=== PATIENT | male | born 1970 | race Caucasian/White ===

== ENCOUNTER → 2018-08-07 | Outpatient (CLI) | payer OTHER ==
--- NOTE | 2018-08-07 14:08 | CT ---
EXAM DESCRIPTION: Abdomen/Pelvis w/o Contrast: Computed Tomography. CLINICAL HISTORY: 47 years Male ABDOMINAL PAIN. Diverticulosis. COMPARISON: None. TECHNIQUE: Spiral-axial scans 2.5 x 2.5 mm intervals through the abdomen and pelvis without oral or IV contrast. Coronal and sagittal 2.0 mm reconstructions. Total Exam DLP: 943.18 mGy-cm. This exam was performed according to our departmental CT dose-optimization program which includes automated exposure control, adjustment of the mA and/or kV according to patient size and/or use of iterative reconstruction technique; to reduce radiation dose to as low as reasonably achievable (ALARA). FINDINGS: Colon: Relatively smooth walled with decreased haustral markings especially in the descending colon. Minimal edema in the raza proximal and transverse colon. Multiple diverticula beginning in the mid descending colon extending into the proximal sigmoid colon. Gas seen in some of the diverticula. No abnormal thickening or enlargement. No focal fatty stranding fascial thickening or fluid collection. There is a minimal indistinctness of the margins of the colon at several segments. No obstruction. Small Bowel: Minimal gas. No distention by fluid. No air-fluid levels. Terminal Ileum/Cecum: Minimal edema in the raza as seen in the colon. Appendix normal caliber. No fatty stranding or fascial thickening. Pelvic Organs: Prostate gland is abutting the base of the urinary bladder with a central calcification in the inferior aspect. No radiodense stones in the urinary bladder or wall thickening. No free fluid. Lung bases and pleura: Negative. Liver, stomach, spleen, and adrenal glands: long axis right lobe 19.9 cm. No focal lesions. Small hiatal hernia. Adrenal glands and spleen are negative. No ascites. Pancreas, Gallbladder, and Ducts: Gallbladder visualized. Duct not dilated. Normal density of pancreas and density of the surrounding fat. Kidneys and Ureters: No radiodense stones or hydronephrosis. Minimal perinephric stranding bilaterally physiologic. Mesentery: Fatty changes around the colon as noted and in the pararenal spaces. No free fluid, fluid collections, or free air. Aorta: Minimal atherosclerotic calcification with normal caliber of the outer raza. Spine and Bony Pelvis: Minimal spondylosis at L3-4 anteriorly. Pelvis and hip joints negative. Abdominal Wall/Back Soft Tissues: Minimal diastases at the umbilicus but no bowel. IMPRESSION: 1. Nonspecific colitis involving almost every segment with diverticulosis distally. No diverticulitis. No pericolonic inflammatory process, abscess, or free fluid. 2. Nonspecific hepatomegaly with no ascites. No common bile duct dilation. Gallbladder normal size. Pancreas is negative. Electronically signed by: David Armijo MD 08/07/2018 2:06 PM CDT
== END ==
LOC: LAB.O 08:56
PROVIDERS: ATTEND General Practice
DX: K57.30 Diverticulosis of large intestine without perforation or abscess without bleeding (principal); R11.0 Nausea

== ENCOUNTER 2018-10-22 13:09 | Emergency (ER) | payer SELFPAY ==
[2018-10-22] MEDS ORDERED: ASPIRIN TABLET 325 MG TAB PO ONE (13:20)
[2018-10-22] MEDS ORDERED: ALUM & MAG HYDROX-SIMETHICONE 30 ML, LIDOCAINE VISCOUS 2% 15 ML PO ONE ×2 (13:20)
[2018-10-22] MEDS ORDERED: LIDOCAINE HCL 2% (MOUTH-THROAT) 15 ML UD ONE (13:58)
[2018-10-22] MEDS ORDERED: ALUM & MAG HYDROX-SIMETHICONE 30 ML UD ONE (13:58)
--- NOTE | 2018-10-22 14:04 | RAD ---
EXAM DESCRIPTION: Abdomen Series CLINICAL HISTORY: nv, sob, chest discomfort COMPARISON: None. FINDINGS: AP supine and upright views of the abdomen show a nonspecific, nonobstructive bowel gas pattern with no evidence for free intraperitoneal air. No air-filled dilated loops of small bowel are seen. No significant air-fluid levels are identified. No obvious organomegaly is seen. No abnormal calcifications are seen in the expected location of the renal collecting systems. Single view of the chest shows cardiac silhouette and pulmonary vasculature to be within normal limits. Lungs are normally aerated and clear IMPRESSION: Nonspecific abdominal series Electronically signed by: Rafat Baker MD 10/22/2018 2:03 PM CDT
[2018-10-22] MEDS ORDERED: SODIUM CHLORIDE 0.9% 1000ML 1,000 ML IVS ONE (14:32)
[2018-10-22] MEDS ORDERED: MAGNESIUM SULFATE PREMIX 2GM 2 GM in PREMIX BAG 1 BAG IVPB ONE (14:33)
--- NOTE | 2018-10-22 14:33 | ED.PDOC ---
History of Present Illness - General Chief Complaint: Chest Pain/CO Time Seen by Provider: 10/22/18 13:19 Source: patient Exam Limitations: no limitations - History of Present Illness Initial Comments: the patient is a 47-year-old male presenting to emergency room secondary tochest pain and shortness of breath. Symptoms started last night in the middle the night when the patient had 3 episodes of chest pain with shortness of breath while he was actually lying in bed. Episodes were brief and lasted less than a few minutes. This morning however when he went to go to work. Any physical activity at all with cause him significant shortness of breath in the morning he exerted himself the more he had chest pain. He developed severe diaphoresis and almost passed out twice at work. No definite palpitations. Chest pain is central and pressure-like. No history of any coronary artery disease he does have hypertension and apparently takes losartan and propranolol. The patient does have mild chronic daily diarrhea since of colitis that he developed back in July. He is still having mild intermittent diarrhea. No abdominal pain. No vomiting today but he did have a little bit of nausea. The patient was diaphoretic and obviously pale and short of breath upon arrival here. Vital signs were however within normal limits. He was oxygenating well. chest pain resolved after a few minutes of resting and relaxing. shortness of breath persisted a bit longer. Supplemental oxygen was put in place for symptomatic relief only. Timing/Duration: unsure Severity: moderate Improving Factors: nothing Worsening Factors: nothing Associated Symptoms: diaphoresis, loss of appetite, shortness of breath, weakness Allergies/Adverse Reactions: Allergies NO KNOWN ALLERGY Allergy (Verified 10/22/18 14:57) Home Medications: Ambulatory Orders Losartan Potassium 100 mg PO DAILY 10/22/18 Propranolol HCl 40 mg PO BID 10/22/18 Review of Systems - Review of Systems Constitutional: States: malaise, weakness EENTM: States: no symptoms reported Respiratory: States: short of breath Cardiology: States: chest pain Gastrointestinal/Abdominal: States: nausea Genitourinary: States: no symptoms reported Musculoskeletal: States: no symptoms reported Skin: States: no symptoms reported Neurological: States: no symptoms reported Endocrine: States: no symptoms reported All other Systems: No Change from Baseline Physical Exam - Physical Exam General Appearance: Alert, Obvious distress, Ill Appearing, Other - the patient is pale and diaphoretic. Eye Exam: bilateral normal Ears, Nose, Throat: hearing grossly normal, normal ENT inspection Neck: full range of motion, supple Respiratory: chest non-tender, lungs clear, normal breath sounds, no respiratory distress, no accessory muscle use Cardiovascular/Chest: normal peripheral pulses, regular rate, rhythm, no edema Peripheral Pulses: radial,right: 2+, radial,left: 2+ Gastrointestinal/Abdominal: non tender - no rebound or peritoneal signs. No pain to palpation. 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 The patient is going to be transferred to [facility] for cardiac evaluation. The patient has received a dose of aspirin and Lovenox for this. He was also initially put on oxygen primarily for symptomatic relief. He is currently chest pain-free and is not short of breath now that he is at rest. Initially the patient had a low magnesium level and was given 2 g of IV magnesium sulfate. He does have mildly elevated liver function tests but does take some daily alcohol intake. The patient also has some chronic renal insufficiency. His creatinine was 2.7 today and was 2.3 back in July. I am uncertain of the source of this. So is he. The patient does apparently have something of a chronic colitis as he reports that he has had some diarrhea essentially on a daily basis since July. he has had a colonoscopy for this. He does have known diverticulosis. No evidence of abdominal pain at this time. This is most likely the source of the low magnesium. He did receive a small fluid bolus. Transferred for higher level of care. No Plavix has been given at this point. - Results/Orders Results/Orders: telemetry monitoring shows normal sinus rhythm. Initial and repeat EKG shows poor progression in anterior leads. Mild T-wave in version in lead [address] segment or T-wave changes otherwise indicative of acute ischemia. Heart rate is approximately 90 bpm. QT interval. Normal axis. Initial chest x-ray fails to show any acute pathology. abdominal x-rays appear to be within normal limits. Laboratory Results - last 24 hr 10/22/18 10/22/18 10/22/18 13:25 13:25 13:25 WBC 7.0 RBC 4.48 L Hgb 15.9 Hct 46.6 MCV 103.9 H MCH 35.4 H MCHC 34.1 RDW 16.3 H Plt Count 196 MPV 7.9 Absolute Neuts (auto) 4.90 Absolute Lymphs (auto) 1.30 Absolute Monos (auto) 0.40 Absolute Eos (auto) 0.20 Absolute Basos (auto) 0.00 Neutrophils % 70.5 Lymphocytes % 19.1 L Monocytes % 6.3 Eosinophils % 3.5 Basophils % 0.6 PT INR PTT (SP) D-Dimer, Quantitative Sodium 131 L Potassium 4.9 Chloride 97 L Carbon Dioxide 21 Anion Gap 17.9 BUN 17 Creatinine 2.77 H BUN/Creatinine Ratio 6.1 L Random Glucose 99 Serum Osmolality 264.2 L Lactic Acid Calcium 9.1 Magnesium 1.3 L Total Bilirubin 1.8 H AST 87 H ALT 64 H Alkaline Phosphatase 67 Creatine Kinase 271 H* CK-MB (CK-2) 6.1 H* CK-MB (CK-2) % 2.25 Troponin I < 0.02 B-Natriuretic Peptide 8.8 Serum Total Protein 7.4 Albumin 3.7 Globulin 3.7 H Albumin/Globulin Ratio 1.0 L Amylase 57 Lipase 58 H Urine Color Urine Appearance Urine pH Ur Specific [place] Urine Protein Urine Glucose (UA) Urine Ketones Urine Blood Urine Nitrite Urine Bilirubin Urine Urobilinogen Ur Leukocyte Esterase Urine RBC Urine WBC Ur Epithelial Cells Urine Bacteria Hyaline Casts 10/22/18 10/22/18 10/22/18 13:25 13:25 14:17 WBC RBC Hgb Hct MCV MCH MCHC RDW Plt Count MPV Absolute Neuts (auto) Absolute Lymphs (auto) Absolute Monos (auto) Absolute Eos (auto) Absolute Basos (auto) Neutrophils % Lymphocytes % Monocytes % Eosinophils % Basophils % PT 10.3 INR 1.03 PTT (SP) 26.8 D-Dimer, Quantitative 0.29 Sodium Potassium Chloride Carbon Dioxide Anion Gap BUN Creatinine BUN/Creatinine Ratio Random Glucose Serum Osmolality Lactic Acid 1.5 Calcium Magnesium Total Bilirubin AST ALT Alkaline Phosphatase Creatine Kinase CK-MB (CK-2) CK-MB (CK-2) % Troponin I B-Natriuretic Peptide Serum Total Protein Albumin Globulin Albumin/Globulin Ratio Amylase Lipase Urine Color Kiki Urine Appearance Clear Urine pH 5.5 Ur Specific [place] 1.020 Urine Protein 100 H Urine Glucose (UA) Negative Urine Ketones Trace Urine Blood Trace-lysed H Urine Nitrite Positive H Urine Bilirubin Moderate Urine Urobilinogen 0.2 Ur Leukocyte Esterase Negative Urine RBC 1-3 Urine WBC 3-5 H Ur Epithelial Cells 0-1 Urine Bacteria 0 Hyaline Casts 3-5 Departure - Departure Clinical Impression: Chronic diarrhea, Hypomagnesemia Chest pain Qualifiers: Chest pain type: unspecified Qualified Code(s): R07.9 - Chest pain, unspecified Disposition: Transfer to Hospital Departure Forms: ED Discharge - Pt. Copy, Patient Portal Self Enrollment Instructions: DI for Chest Pain Referrals: Aditya Tolliver MD [Primary Care Provider] - 1-2 Weeks Home Medications: Ambulatory Orders Losartan Potassium 100 mg PO DAILY 10/22/18 Propranolol HCl 40 mg PO BID 10/22/18 Transfer to Outside Facility - Transfer Information Accepting Provider:: dr metz Accepting Facility: [facility] Reason for Transfer: required specialist not available
[2018-10-22] MEDS ORDERED: MAGNESIUM SULFATE PREMIX 2GM 50 ML IVPB ONE (14:53)
[2018-10-22] MEDS ORDERED: SUCRALFATE 1 GM/10 ML 1 GM UD PO ONE (15:01)
[2018-10-22] MEDS ORDERED: ENOXAPARIN SODIUM 80 MG/0.8 ML SYG SUBCU ONE (15:27)
[2018-10-22 17:40] VITALS: TEMP 97.8
[2018-10-22 17:45] VITALS: BP 132/98; O2SAT 98
== END 2018-10-22 17:18 | disposition short-term general hospital (02) ==
LOC: ER 13:09
DX: R07.9 Chest pain, unspecified (principal); R19.7 Diarrhea, unspecified; E83.42 Hypomagnesemia; R06.02 Shortness of breath; R94.5 Abnormal results of liver function studies; N28.9 Disorder of kidney and ureter, unspecified; K57.30 Diverticulosis of large intestine without perforation or abscess without bleeding; R11.0 Nausea; I10 Essential (primary) hypertension; Z79.899 Other long term (current) drug therapy
CPT/HCPCS: 36415; 74019; 80053; 81001; 82150; 82550; 82553; 83605; 83690; 83735; 83880; 84484; 85025; 85379; 85610; 85730; 87086; 93005; J1650; J3475; J7030

== ENCOUNTER → 2019-01-12 | Outpatient (CLI) | payer SELFPAY ==
--- NOTE | 2019-01-12 20:22 | US ---
EXAM DESCRIPTION: Venous,Lower Extremity LT (accession [id number]), Venous,Lower Extremity RT (accession [id number]): Ultrasound. CLINICAL HISTORY: EDEMA, PN. Bilateral lower extremities. COMPARISON: None Available. TECHNIQUE: Two -dimensional and doppler sonographic evaluation of the deep venous system of the bilateral lower extremities. FINDINGS: Doppler evaluation shows normal color flow and normal phasicity and augmentation of the bilateral common femoral veins, junctions with the bilateral proximal saphenous veins, femoral veins, popliteal veins, greater saphenous vein junctions with the common femoral vein,, peroneal and posterior tibial veins. These veins showed normal occlusion with transducer pressure. Two-dimensional survey showed no echogenic clot within these veins. IMPRESSION: Duplex ultrasound evaluation of the bilateral lower extremity deep venous systems showing no evidence of thrombosis. Electronically signed by: David Armijo MD 01/12/2019 8:20 PM NATIONAL SALES TRAINER
--- NOTE | 2019-01-12 20:22 | US ---
EXAM DESCRIPTION: Venous,Lower Extremity LT (accession [id number]), Venous,Lower Extremity RT (accession [id number]): Ultrasound. CLINICAL HISTORY: EDEMA, PN. Bilateral lower extremities. COMPARISON: None Available. TECHNIQUE: Two -dimensional and doppler sonographic evaluation of the deep venous system of the bilateral lower extremities. FINDINGS: Doppler evaluation shows normal color flow and normal phasicity and augmentation of the bilateral common femoral veins, junctions with the bilateral proximal saphenous veins, femoral veins, popliteal veins, greater saphenous vein junctions with the common femoral vein,, peroneal and posterior tibial veins. These veins showed normal occlusion with transducer pressure. Two-dimensional survey showed no echogenic clot within these veins. IMPRESSION: Duplex ultrasound evaluation of the bilateral lower extremity deep venous systems showing no evidence of thrombosis. Electronically signed by: David Armijo MD 01/12/2019 8:20 PM BOILER SERVICE TECHNICIAN
== END ==
LOC: US 11:59
PROVIDERS: ATTEND Family Medicine
DX: M79.661 Pain in right lower leg (principal); R60.0 Localized edema

== ENCOUNTER 2020-03-17 16:52 | Emergency (ER) | payer SELFPAY ==
--- NOTE | 2020-03-17 17:10 | ED.PDOC ---
History of Present Illness - General Stated Complaint: Vomiting, diarrhea, alcohol withdrawal Time Seen by Provider: 03/17/20 17:10 Source: patient, family Additional Information: History of Alcohol abuse, low magnesium - History of Present Illness Initial Comments: Patient has a history of alcohol abuse with heavy alcohol consumption, approximately equal to 12 beers a day. He last drank last night. Patient reports 7-hour history of vomiting too numerous to count. He has also had yellow nonbloody diarrhea at least 15 times. He Does not complain of any abdominal pain. He has not vomited any blood. Patient also complains of some pain in his left shoulder. He is not complaining of Midsternal chest pain or difficulty breathing. Patient has a history of alcohol withdrawal even In times when he continues to consume alcohol. The present time he denies seizures but does complain of mild tremors. He has not had any blackouts. Timing/Duration: other - 8 hours Severity: severe Worsening Factors: nothing Associated Symptoms: nausea/vomiting, other Allergies/Adverse Reactions: Allergies NO KNOWN ALLERGY Allergy (Verified 10/22/18 14:57) Home Medications: Ambulatory Orders Losartan Potassium 100 mg PO DAILY 10/22/18 Propranolol HCl 40 mg PO BID 10/22/18 Review of Systems - Review of Systems Constitutional: States: no symptoms reported EENTM: States: no symptoms reported Respiratory: States: no symptoms reported Cardiology: States: no symptoms reported Genitourinary: States: see HPI Musculoskeletal: States: no symptoms reported Skin: States: no symptoms reported Neurological: States: tremors Endocrine: States: no symptoms reported Hematologic/Lymphatic: States: no symptoms reported Past Medical History (General) - Patient Medical History Hx Stroke: No Hx Congestive Heart Failure: No Hx Hypertension: Yes Hx Diabetes: No - Vaccination History Hx Influenza Vaccination: No Hx Pneumococcal Vaccination: No - Social History Hx Tobacco Use: Yes - Quit 2011 Hx Alcohol Use: Yes - Social Family Medical History - Family History Father Family History: No Known Living Status: Still Living Physical Exam - Physical Exam General Appearance: Alert, Comfortable Eye Exam: bilateral normal Ears, Nose, Throat: hearing grossly normal, normal pharynx, other - Moist mucous membranes Neck: non-tender, full range of motion, supple Respiratory: lungs clear Cardiovascular/Chest: regular rate, rhythm Gastrointestinal/Abdominal: non tender, soft, other - Increased bowel sounds Back Exam: normal inspection, no CVA tenderness Extremity: normal range of motion 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 Very minimal tremor. Skin Exam: normal color, warm/dry, other - Normal turgor Lymphatic: no adenopathy Progress - Progress Progress: 03/17/20 17:33 IV normal saline 1 L infusion with Phenergan 25 mg added. Ativan 1 mg and Pepcid 20 mg IV ordered. Asleep. Marked Reductions in sodium and potassium noted. IV normal saline with 20 mEq of potassium started. Admission decision. 03/17/20 19:57 03/17/20 20:34 Discussed with hospitalist on-call for [facility], nurse practitioner Obi at 803 and 8:16 PM. He request the patient be transferred to [facility] in [place] because the patient is at high risk for alcohol withdrawal. In prior admissions the patient goes into alcohol withdrawal due to his high daily intake and this hospital does not have capabilities to treat active alcohol withdrawal. Call placed to the transfer center at [facility] at 8:32 PM to request transfer bed placement. 03/17/20 22:26 At 9:52 PM the patient Horton well and wished to leave the hospital. I explained to him that he could be more acutely ill than he realizes and ordered an additional chemistry panel to be completed after which time we would discuss whether or not leaving against advice would be a good idea. The patient was comfortable on a crackers at that time without vomiting. As of 10:26 PM I discovered from nursing staff the patient decided to leave against advice in the interim sign his forms and left in good condition. - Results/Orders Results/Orders: Electrocardiogram: Normal sinus rhythm, 60-minute, normal intervals, no STT changes, normal tracing. 03/17/20 17:30 EKG STAT 03/17/20 19:38 KCl 20 Meq/Ns [NS W/ KCL 20 meq/Liter] 1,000 ml IVS .QD Laboratory Results - last 24 hr 03/17/20 03/17/20 17:36 17:36 WBC 8.1 RBC 5.36 Hgb 15.8 Hct 45.8 MCV 85.4 MCH 29.5 MCHC 34.6 RDW 19.7 H Plt Count 294 MPV 6.5 L Absolute Neuts (auto) 6.00 Absolute Lymphs (auto) 1.10 Absolute Monos (auto) 0.80 Absolute Eos (auto) 0.00 Absolute Basos (auto) 0.10 Neutrophils % 74.3 Lymphocytes % 14.2 L Monocytes % 10.3 H Eosinophils % 0.4 L Basophils % 0.8 Normal RBC Morphology Stain quality accept Sodium 121 L Potassium 2.8 L Chloride 83 L Carbon Dioxide 23 Anion Gap 17.8 BUN 20 H Creatinine 1.21 BUN/Creatinine Ratio 16.5 Random Glucose 142 H Serum Osmolality 249.1 L* Calcium 8.4 Magnesium 1.7 L Total Bilirubin 2.6 H* AST 55 H ALT 36 Alkaline Phosphatase 48 Serum Total Protein 8.1 Albumin 4.3 Globulin 3.8 H Albumin/Globulin Ratio 1.1 Lipase 73 H Vital Signs - 24 hr 03/17/20 03/17/20 03/17/20 16:55 17:17 19:05 Temperature 97.3 F L 97.4 F L Pulse Rate [ 61 61 65 Pulse ox] Respiratory 18 18 14 Rate Blood Pressure 151/95 112/74 [R arm] O2 Sat by Pulse 98 96 Oximetry 03/17/20 17:30 EKG STAT 03/17/20 19:38 KCl 20 Meq/Ns [NS W/ KCL 20 meq/Liter] 1,000 ml IVS .QD 03/17/20 19:59 ED Intent to Admit Routine 03/17/20 21:52 CMP [COMPLETE METABOLIC PROFILE] Stat Laboratory Results - last 24 hr 03/17/20 03/17/20 03/17/20 17:36 17:36 21:52 WBC 8.1 RBC 5.36 Hgb 15.8 Hct 45.8 MCV 85.4 MCH 29.5 MCHC 34.6 RDW 19.7 H Plt Count 294 MPV 6.5 L Absolute Neuts (auto) 6.00 Absolute Lymphs (auto) 1.10 Absolute Monos (auto) 0.80 Absolute Eos (auto) 0.00 Absolute Basos (auto) 0.10 Neutrophils % 74.3 Lymphocytes % 14.2 L Monocytes % 10.3 H Eosinophils % 0.4 L Basophils % 0.8 Normal RBC Morphology Stain quality accept Sodium 121 L 125 L Potassium 2.8 L 3.4 L D Chloride 83 L 90 L Carbon Dioxide 23 23 Anion Gap 17.8 15.4 BUN 20 H Creatinine 1.21 BUN/Creatinine Ratio 16.5 Random Glucose 142 H Serum Osmolality 249.1 L* Calcium 8.4 7.4 L Magnesium 1.7 L Total Bilirubin 2.6 H* AST 55 H ALT 36 Alkaline Phosphatase 48 Serum Total Protein 8.1 Albumin 4.3 Globulin 3.8 H Albumin/Globulin Ratio 1.1 Lipase 73 H Departure - Departure Clinical Impression: Vomiting, Hypokalemia, Alcoholic gastritis Time of Disposition: 22:27 Disposition: Left Against Medical Advice Condition: Good Referrals: MARGARET MUÑIZ MD [Primary Care Provider] - 1-2 Weeks Home Medications: Ambulatory Orders Losartan Potassium 100 mg PO DAILY 10/22/18 Propranolol HCl 40 mg PO BID 10/22/18 Decision To Admit - Decistion To Admit Decision to Admit Reason: Medical Nature Decision to Admit Date: 03/17/20 Decision to Admit Time: 19:59 Transfer to Outside Facility - Transfer Information Decision to Transfer Date: 03/17/20 Decision to Transfer Time: 20:34 Reason for Transfer: specialized care not available
[2020-03-17] MEDS ORDERED: SODIUM CHLORIDE 0.9% 1000ML 1,000 ML IVS ONE (17:22)
[2020-03-17] MEDS ORDERED: PROMETHAZINE HCL IVPB ONE (17:23)
[2020-03-17] MEDS ORDERED: SODIUM CHLORIDE 0.9% IVPB ONE (17:23)
[2020-03-17] MEDS ORDERED: FAMOTIDINE IV PREMIX 20 MG in PREMIX BAG 1 BAG IVPB ONE (17:24)
[2020-03-17] MEDS ORDERED: PROMETHAZINE HCL INJ 25 MG/ML VIAL ONE (17:40)
[2020-03-17] MEDS ORDERED: KCL 20 MEQ/NS 1,000 ML IVS PRN (19:38)
[2020-03-17] MEDS ORDERED: SODIUM CHLORIDE 0.9% 1000ML 1,000 ML ONE (19:56)
[2020-03-17 21:55] VITALS: O2SAT 97
[2020-03-17 21:57] VITALS: BP 144/77
[2020-03-17 21:59] VITALS: TEMP 97.3
== END 2020-03-17 22:00 | disposition left against medical advice (07) ==
LOC: ER 16:52
DX: K29.20 Alcoholic gastritis without bleeding (principal); E87.6 Hypokalemia; R07.2 Precordial pain; I10 Essential (primary) hypertension; Z79.899 Other long term (current) drug therapy; Z87.891 Personal history of nicotine dependence; Z53.29 Procedure and treatment not carried out because of patient's decision for other reasons
CPT/HCPCS: 36415; 80053; 83690; 83735; 85025; 93005; J2060; J2550; J3480; J3490; J7030